=== PATIENT | female | born 1965 | race Caucasian/White ===

== ENCOUNTER 2016-04-25 19:14 | Emergency (ER) | payer MEDICAID ==
[~2016-04-25] VITALS: Ht 177.8 cm; Wt 86.6 kg
[~2016-04-25 19:14] MED LIST: ESCI20TA PO; ROPI0.5T GT; TOPI-37 PO; WARF4TAB6 PO
[2016-04-25 20:20] LABS: BASOPHILS # (AUTO) 0.1 /CMM (0.0-0.2); BASOPHILS % (AUTO) 0.7 % (0.0-2.0); DIFF TOTAL % 100 %; EOSINOPHILS # (AUTO) 0.6 /CMM (0.0-0.7); EOSINOPHILS % (AUTO) 6.9 % (0.0-6.0); HEMATOCRIT 35 % (33-45); HEMOGLOBIN 11.8 g/dL (11.5-14.8); MEAN CORPUSCULAR HEMOGLOBIN 28 PG (26.0-33.0); MEAN CORPUSCULAR HGB CONC 34 g/dl (31.0-36.0); MEAN CORPUSCULAR VOLUME 82 fL (82-100); MONOCYTES # (AUTO) 0.4 /CMM (0.1-1.30); MONOCYTES % (AUTO) 4.3 % (2.0-12.0); NEUTROPHILS # (AUTO) 4.4 /CMM (1.8-8.9); NEUTROPHILS % (AUTO) 52.1 % (43.0-81.0); PLATELET COUNT (AUTO) 351 /CMM (150-450); RED BLOOD CELL COUNT(AUTO) 4.25 MIL/uL (4.0-5.2); WHITE BLOOD COUNT (AUTO) 8.5 K/uL (4.3-11.0)
[2016-04-25 20:24] LABS: KETONES,URINE Trace (NEGATIVE); LEUKOCYTE ESTERASE ,URINE Negative (NEGATIVE)
[2016-04-25 20:25] LABS: ADD UA MICROSCOPIC NO
[2016-04-25 20:28] LABS: ANION GAP 12 (5-14); CALCIUM, SERUM 8.5 mg/dL (8.5-10.1); CARBON DIOXIDE 26 mmol/L (21-32); CHLORIDE 107 mmol/L (98-107); CREATININE 0.9 mg/dL (0.6-1.3); GFR 67 mL/min (>60); GLUCOSE 101 mg/dL (74-106); POTASSIUM 3.9 mmol/L (3.5-5.1); SODIUM SERUM 141 mmol/L (136-145); UREA NITROGEN, BLOOD 12 mg/dL (7-18)
[2016-04-25 20:38] LABS: TROPONIN I < 0.017 ng/mL (0.00-0.056)
[2016-04-25 21:56] VITALS: BP 142/95
== END 2016-04-25 21:58 | disposition home or self-care (01) ==
LOC: ER 19:17
DX: R07.89 Other chest pain (principal); R53.1 Weakness; G43.909 Migraine, unspecified, not intractable, without status migrainosus; I26.99 Other pulmonary embolism without acute cor pulmonale; F41.9 Anxiety disorder, unspecified; G89.29 Other chronic pain; M54.5 Low back pain; I82.409 Acute embolism and thrombosis of unspecified deep veins of unspecified lower extremity; G25.81 Restless legs syndrome; Z98.890 Other specified postprocedural states
CPT/HCPCS: 36415; 71010; 80048; 81001; 84484; 85025; 93005; 99285; A4606; Z7610; 81000-TC